=== PATIENT | female | born 1935 | race Caucasian/White ===

== ENCOUNTER 2017-04-25 15:26 | Inpatient (IN) | payer OTHER, BC ==
[~2017-04-25] VITALS: Ht 147.3 cm; Wt 61.8 kg
[~2017-04-25 15:26] MED LIST: ADVIL COLD PO; Ascorbic Acid,Ester- PO; CENTRUM SILV1 TABLET PO; HYDROCHLOROTH12.5 M3 PO; LORTAB 10 MG-3473 ML PO; MAGIC MOUTHWASH PO; MEGARED OMEGA-1 EAC2 PO; OXYCODONE HCL5 MG PO; Oyst-Cal D, Oscal W/ PO; PREDNISONE5 MG PO; Prilosec PO; SINGULAIR10 MG PO; SYNTHROID50 MCG PO; Singulair PO; Symbicort 160-4.5 mc IH; TOPROL XL25 MG PO; TYLENOL REGULA325 MG PO; VITAMIN B-12500 MC4 PO; VITAMIN D1000 INTUN PO; VITAMIN E400 UNIT PO; Xanax PO; Zoloft PO; [UNRECOGNIZED DRUG - OTHER] PO
[2017-04-25 18:43] LABS: HEMATOCRIT 29.4 % (36.0-46.0); MCH 30.4 PG (29.0-34.0); MCHC 31.3 G/DL (30.0-36.0); MEAN PLAT.VOLUME 9.7 uM^3 (9.5-12.4); PLATELET COUNT 239 K/uL (156-360); RBC DIS.WIDTH-CV 14.6 % (11.8-14.6); RBC DIS.WIDTH-SD 51.6 % (39-53); RED BLOOD COUNT 3.03 M/uL (3.80-5.20); WHITE BLOOD COUNT 7.4 K/uL (4.1-10.2)
[2017-04-25 18:52] LABS: CHLORIDE 103 mEq/L (99-109); SODIUM 139 mEq/L (136-147)
[2017-04-25 18:55] LABS: GLUCOSE 94 mg/dL (70-99)
[2017-04-25 18:56] LABS: ANION GAP 8 MEQ/L (2-14)
[2017-04-25 18:57] LABS: TOTAL BILIRUBIN 0.5 mg/dL (0.0-1.0)
[2017-04-25 18:58] LABS: ALKALINE PHOSPHATASE 73 IU/L (3-129); GFR ESTIMATE (CALCULATED) 51 mL/min/
[2017-04-25 18:59] LABS: UREA NITROGEN (BUN) 11 mg/dL (9-23)
[2017-04-25] MEDS ORDERED: LOPRESSOR25 MG PO (19:28)
[2017-04-25] MEDS ORDERED: LEVOTHYROXINE50 MCG PO (19:29)
[2017-04-25] MEDS ORDERED: ALPRAZOLAM0.5 MG PO (19:30)
[2017-04-25] MEDS ORDERED: SERTRALINE HCL100 MG PO (19:31)
[2017-04-25] MEDS ORDERED: FOLIC ACID1 MG PO (19:34)
[2017-04-25] MEDS ORDERED: VENTOLIN HFA18 GM IH (19:34)
[2017-04-25] MEDS ORDERED: MONTELUKAST SOD10 MG PO (19:35)
[2017-04-25] MEDS ORDERED: CENTRUM SILVER1 EAC4 PO (19:40)
[2017-04-25] MEDS ORDERED: IRON325 M1 PO (19:42)
[2017-04-25] MEDS ORDERED: CALCIUM600 M1 PO (19:42)
[2017-04-25] MEDS ORDERED: VITAMIN D-3 401 EACH PO (19:44)
[2017-04-25] MEDS ORDERED: LO-DOSE ASPIRIN81 M2 PO (19:45)
[2017-04-25 23:53] VITALS: BP 122/60
[2017-04-25 23:56] LABS: ADD MIUA? YES; BILIRUBIN NEGATIVE; BLOOD SMALL; COLOR YELLOW ((YELLOW)); GLUCOSE (STRIP) NEGATIVE; KETONES NEGATIVE; LEUKOCYTES NEGATIVE; NITRITE NEGATIVE; PROTEIN (STRIP) NEGATIVE; UROBILINOGEN 0.2 MG/DL (0.2-1.0)
[2017-04-26 00:06] LABS: BACTERIA 2+ /HPF; EPITHELIAL CELLS RARE /HPF; MUCUS 1+ /LPF; RED BLOOD CELLS 0-5 /HPF (0-5); UCUL ADDED? YES; WHITE BLOOD CELLS 0-5 /HPF (0-5)
[2017-04-26 04:07] VITALS: BP 144/66
[2017-04-26 08:04] VITALS: BP 144/66
[2017-04-26 08:05] LABS: INTERNAL CONTROL VALID? YES
[2017-04-26 08:43] LABS: MCH 30.7 PG (29.0-34.0); MCHC 31.4 G/DL (30.0-36.0); MEAN PLAT.VOLUME 9.7 uM^3 (9.5-12.4); PLATELET COUNT 235 K/uL (156-360); RBC DIS.WIDTH-CV 14.6 % (11.8-14.6); RBC DIS.WIDTH-SD 52.2 % (39-53); RED BLOOD COUNT 2.96 M/uL (3.80-5.20); WHITE BLOOD COUNT 5.4 K/uL (4.1-10.2)
[2017-04-26 09:22] LABS: ANION GAP 10 MEQ/L (2-14); CHLORIDE 107 MEQ/L (99-109); GFR ESTIMATE (CALCULATED) > 59 mL/min/; POTASSIUM 4.3 MEQ/L (3.7-5.4); SAMPLE HEMOLYSIS CHECK 0; SAMPLE ICTERIC CHECK 0; SAMPLE LIPEMIA CHECK 0; SODIUM 143 MEQ/L (136-147); UREA NITROGEN (BUN) 12 mg/dL (9-23)
[2017-04-26 09:24] LABS: GLUCOSE 232 mg/dL (70-99)
[2017-04-26 09:52] LABS: EOSINOPHIL (%) 0.2 % (0-5); IMMATURE GRANULOCYTE (%) 4.4 % (0.0-0.7); IMMATURE GRANULOCYTE COUNT 0.2 K/uL; INSTRUMENT ABS NEUTROPHIL CT 4.7 K/uL; LYMPHOCYTE COUNT 0.4 K/uL (1.0-2.8); MONOCYTE (%) 0.9 % (3-12); MONOCYTE COUNT 0.1 K/uL (0-0.8); NEUTROPHIL (%) 86.2 % (45-76); NEUTROPHIL COUNT 4.7 K/uL (1.8-6.4)
[2017-04-26 11:30] VITALS: BP 127/57
[2017-04-26 16:01] VITALS: BP 132/60
[2017-04-26 18:29] LABS: C DIFF TOXIN NEGATIVE (NEGATIVE)
[2017-04-26 18:30] LABS: PROBE CHECK PASS; SPECIMEN PROCESSING CONTROL PASS
[2017-04-26 19:47] VITALS: BP 122/57
[2017-04-26 21:25] VITALS: BP 128/72
[2017-04-27 00:02] VITALS: BP 130/64
[2017-04-27 03:30] VITALS: BP 121/76
[2017-04-27 06:45] LABS: HEMATOCRIT 27.2 % (36.0-46.0); MCH 31.3 PG (29.0-34.0); MCHC 31.6 G/DL (30.0-36.0); MCV 98.9 FL (83-99); MEAN PLAT.VOLUME 9.8 uM^3 (9.5-12.4); PLATELET COUNT 240 K/uL (156-360); RBC DIS.WIDTH-CV 14.5 % (11.8-14.6); RBC DIS.WIDTH-SD 52.1 % (39-53); RED BLOOD COUNT 2.75 M/uL (3.80-5.20)
[2017-04-27 07:12] LABS: ANION GAP 9 MEQ/L (2-14); CHLORIDE 109 MEQ/L (99-109); GFR ESTIMATE (CALCULATED) 57 mL/min/; GLUCOSE 189 mg/dL (70-99); POTASSIUM 5.4 MEQ/L (3.7-5.4); SAMPLE HEMOLYSIS CHECK 0; SAMPLE ICTERIC CHECK 0; SAMPLE LIPEMIA CHECK 0; SODIUM 145 MEQ/L (136-147); UREA NITROGEN (BUN) 16 mg/dL (9-23)
[2017-04-27 08:02] VITALS: BP 141/63
[2017-04-27 12:59] VITALS: BP 181/74
[2017-04-27 16:34] VITALS: BP 172/72
[2017-04-27 19:35] VITALS: BP 181/76
[2017-04-28] VITALS (8 sets, daily range): BP systolic 126–184; BP diastolic 65–97
[2017-04-28 05:47] LABS: HEMATOCRIT 28.1 % (36.0-46.0); MCH 30.3 PG (29.0-34.0); MCV 97.9 FL (83-99); MEAN PLAT.VOLUME 9.5 uM^3 (9.5-12.4); PLATELET COUNT 273 K/uL (156-360); RBC DIS.WIDTH-CV 14.6 % (11.8-14.6); RED BLOOD COUNT 2.87 M/uL (3.80-5.20); WHITE BLOOD COUNT 13.5 K/uL (4.1-10.2)
[2017-04-28 06:12] LABS: ANION GAP 8 MEQ/L (2-14); CHLORIDE 109 MEQ/L (99-109); GFR ESTIMATE (CALCULATED) 51 mL/min/; GLUCOSE 167 mg/dL (70-99); POTASSIUM 4.9 MEQ/L (3.7-5.4); SAMPLE HEMOLYSIS CHECK 0; SAMPLE ICTERIC CHECK 0; SAMPLE LIPEMIA CHECK 0; SODIUM 146 MEQ/L (136-147); UREA NITROGEN (BUN) 23 mg/dL (9-23)
[2017-04-29] VITALS (7 sets, daily range): BP systolic 150–181; BP diastolic 69–80
[2017-04-29 06:30] LABS: HEMATOCRIT 29.9 % (36.0-46.0); MCH 30.6 PG (29.0-34.0); MCHC 31.1 G/DL (30.0-36.0); MCV 98.4 FL (83-99); MEAN PLAT.VOLUME 9.5 uM^3 (9.5-12.4); NRBC (%) 0.2 /100 WBC (0-0); PLATELET COUNT 291 K/uL (156-360); RBC DIS.WIDTH-CV 14.7 % (11.8-14.6); RBC DIS.WIDTH-SD 53.3 % (39-53); RED BLOOD COUNT 3.04 M/uL (3.80-5.20); WHITE BLOOD COUNT 12.2 K/uL (4.1-10.2)
[2017-04-29 06:50] LABS: ANION GAP 9 MEQ/L (2-14); CHLORIDE 105 MEQ/L (99-109); GFR ESTIMATE (CALCULATED) 38 mL/min/; GLUCOSE 159 mg/dL (70-99); POTASSIUM 4.5 MEQ/L (3.7-5.4); SAMPLE HEMOLYSIS CHECK 0; SAMPLE ICTERIC CHECK 0; SAMPLE LIPEMIA CHECK 0; SODIUM 147 MEQ/L (136-147); UREA NITROGEN (BUN) 30 mg/dL (9-23)
[2017-04-30 05:40] LABS: HEMATOCRIT 28.1 % (36.0-46.0); MCH 31.1 PG (29.0-34.0); MCHC 31.3 G/DL (30.0-36.0); MCV 99.3 FL (83-99); MEAN PLAT.VOLUME 9.5 uM^3 (9.5-12.4); NRBC (%) 0.2 /100 WBC (0-0); PLATELET COUNT 261 K/uL (156-360); RBC DIS.WIDTH-CV 14.7 % (11.8-14.6); RBC DIS.WIDTH-SD 53.6 % (39-53); RED BLOOD COUNT 2.83 M/uL (3.80-5.20)
[2017-04-30 06:19] LABS: ANION GAP 7 MEQ/L (2-14); CHLORIDE 107 MEQ/L (99-109); GFR ESTIMATE (CALCULATED) 42 mL/min/; GLUCOSE 171 mg/dL (70-99); POTASSIUM 4.7 MEQ/L (3.7-5.4); SAMPLE HEMOLYSIS CHECK 0; SAMPLE ICTERIC CHECK 0; SAMPLE LIPEMIA CHECK 0; SODIUM 145 MEQ/L (136-147); UREA NITROGEN (BUN) 27 mg/dL (9-23)
[2017-04-30 06:48] VITALS: BP 127/53
[2017-04-30 07:23] LABS: ABS NEUTROPHIL COUNT 8.7; BAND NEUTROPHILS 5.3 % (0-8.0); EOSINOPHIL ABS CT 0; INSTRUMENT ABS NEUTROPHIL CT 7.8 K/uL; LYMPHOCYTES 6.1 % (15.0-45.0); METAMYELOCYTES 0.9 %; MYELOCYTES 1.7 %; PLAT.SUFFICIENCY ADEQUATE; SEG.NEUTROPHILS 81.6 % (46.0-76.0)
[2017-04-30] MEDS ORDERED: Symbicort 160-4.5 mc IH (12:12)
[2017-04-30] MEDS ORDERED: LEVOFLOXACIN750 MG PO (12:12)
[2017-04-30] MEDS ORDERED: PREDNISONE20 MG PO (12:12)
[2017-04-30] MEDS ORDERED: VENTOLIN HFA18 GM IH (12:12)
[2017-04-30] MEDS ORDERED: AMLODIPINE BESY10 MG PO (12:12)
[2017-04-30] MEDS ORDERED: MUCINEX600 MG PO (12:12)
== END 2017-04-30 15:19 | disposition home health service (06) | DRG 193 ==
LOC: EME 15:26 → EDOF 20:53 → 5EAST 20:53 → ENRESERV 20:54 → 5EAST 22:11 → ENPENDDIS 04-30 → 5EAST 04-30 15:19
PROVIDERS: Hospitalist; Internal Medicine; Nurse Practitioner Family
DX: J18.9 Pneumonia, unspecified organism (principal); J44.0 Chronic obstructive pulmonary disease with (acute) lower respiratory infection; J44.1 Chronic obstructive pulmonary disease with (acute) exacerbation; J96.21 Acute and chronic respiratory failure with hypoxia; N17.9 Acute kidney failure, unspecified; D84.9 Immunodeficiency, unspecified; C78.00 Secondary malignant neoplasm of unspecified lung; C79.51 Secondary malignant neoplasm of bone; D64.9 Anemia, unspecified; I10 Essential (primary) hypertension; F39 Unspecified mood [affective] disorder; E03.9 Hypothyroidism, unspecified; F32.9 Major depressive disorder, single episode, unspecified; F41.9 Anxiety disorder, unspecified; T45.1X5A Adverse effect of antineoplastic and immunosuppressive drugs, initial encounter; Z99.81 Dependence on supplemental oxygen; Z87.891 Personal history of nicotine dependence; Z90.49 Acquired absence of other specified parts of digestive tract; Z85.038 Personal history of other malignant neoplasm of large intestine; Z92.3 Personal history of irradiation; Z85.118 Personal history of other malignant neoplasm of bronchus and lung; Z90.2 Acquired absence of lung [part of]
CPT/HCPCS: 36415; 71010; 71250; 80048; 80053; 81003; 82306; 83605; 85025; 85027; 87040; 87070; 87077; 87086; 87086 GA; 87186; 87205; 87449; 87493; 94640; 94640 76; 94799; 99202; 99281; 99285; J0295; J0456; J1650; J1940; J2920; J2930; J3370; J7030; J7050

== ENCOUNTER 2017-09-30 18:54 | Inpatient (IN) | payer OTHER, BC ==
[~2017-09-30] VITALS: Ht 147.3 cm; Wt 63.7 kg
[~2017-09-30 18:54] MED LIST changes: +ALPRAZOLAM0.5 MG PO; +AMLODIPINE BESY10 MG PO; +CALCIUM600 M1 PO; +CENTRUM SILVER1 EAC4 PO; +FOLIC ACID1 MG PO; +IRON325 M1 PO; +LEVOFLOXACIN750 MG PO; +LEVOTHYROXINE50 MCG PO; +LO-DOSE ASPIRIN81 M2 PO; +LOPRESSOR25 MG PO; +MONTELUKAST SOD10 MG PO; +MUCINEX600 MG PO; +PREDNISONE20 MG PO; +SERTRALINE HCL100 MG PO; +VENTOLIN HFA18 GM IH; +VITAMIN D-3 401 EACH PO
[2017-09-30 19:29] LABS: HEMATOCRIT 34.5 % (36.0-46.0); HEMOGLOBIN 11.2 G/DL (11.9-15.5); MCH 31.2 PG (29.0-34.0); MCHC 32.5 G/DL (30.0-36.0); MCV 96.1 FL (83-99); PLATELET COUNT 302 K/uL (156-360); RBC DIS.WIDTH-CV 15.1 % (11.8-14.6); RED BLOOD COUNT 3.59 M/uL (3.80-5.20); WHITE BLOOD COUNT 11.8 K/uL (4.1-10.2)
[2017-09-30 19:41] LABS: CHLORIDE 104 mEq/L (99-109); POTASSIUM 4.7 mEq/L (3.7-5.4); SODIUM 140 mEq/L (136-147)
[2017-09-30 19:42] LABS: GLUCOSE 165 mg/dL (70-99)
[2017-09-30 19:46] LABS: CREATININE 1.4 mg/dL (0.6-1.3); GFR ESTIMATE (CALCULATED) 38 mL/min/
[2017-09-30 19:47] LABS: UREA NITROGEN (BUN) 28 mg/dL (9-23)
[2017-09-30 19:50] LABS: TROP-I INTERPRETATION NEGATIVE; TROPONIN-I < 0.01 ng/mL (0.0-0.30)
[2017-09-30 21:08] LABS: INTER. NORMALIZED RATIO 1.1
[2017-09-30 21:11] LABS: PTT 25.2 SEC (25-37)
[2017-09-30 21:15] LABS: MAGNESIUM 2.3 mg/dL (1.3-2.7)
[2017-09-30 21:17] LABS: TOTAL PROTEIN 6.9 g/dL (6.4-8.3)
[2017-09-30 21:18] LABS: TOTAL BILIRUBIN 0.3 mg/dL (0.0-1.0)
[2017-09-30 21:20] LABS: ALKALINE PHOSPHATASE 67 IU/L (3-129)
[2017-09-30 21:22] LABS: AST (GOT) 11 IU/L (2-34); DIRECT BILIRUBIN 0.1 mg/dL (0.0-0.3)
[2017-09-30 21:23] LABS: ALT (GPT) 11 IU/L (3-49)
[2017-09-30] MEDS ORDERED: MUCINEX600 MG PO (21:36)
[2017-09-30] MEDS ORDERED: SYMBICORT60 INHALAT IH (21:38)
[2017-09-30] MEDS ORDERED: B-121000 MC2 PO (21:38)
[2017-09-30] MEDS ORDERED: REFRESH TEARS15 ML BOTH EYES (21:40)
[2017-09-30] MEDS ORDERED: ADVIL ALLERGY-1 EACH PO (21:43)
[2017-09-30] MEDS ORDERED: PREDNISONE10 MG PO ×3 (21:46→21:48)
[2017-10-01 01:41] VITALS: BP 144/65
[2017-10-01 03:40] VITALS: BP 123/56
[2017-10-01 05:23] LABS: HEMATOCRIT 34.2 % (36.0-46.0); HEMOGLOBIN 10.6 G/DL (11.9-15.5); MCH 30.2 PG (29.0-34.0); MCV 97.4 FL (83-99); PLATELET COUNT 268 K/uL (156-360); RBC DIS.WIDTH-CV 15.3 % (11.8-14.6); RBC DIS.WIDTH-SD 54.4 % (39-53); RED BLOOD COUNT 3.51 M/uL (3.80-5.20); WHITE BLOOD COUNT 11.8 K/uL (4.1-10.2)
[2017-10-01 05:38] LABS: TROP-I INTERPRETATION NEGATIVE; TROPONIN-I 0.01 ng/mL (0.0-0.30)
[2017-10-01 05:47] LABS: ANISOCYTOSIS 1+; BAND NEUTROPHILS 1.8 % (0-8.0); EOSINOPHIL ABS CT 0; LYMPHOCYTES 3.5 % (15.0-45.0); MACROCYTES 1+; METAMYELOCYTES 1.8 %; MONOCYTES 1.8 % (0-9.0); PLAT.SUFFICIENCY ADEQUATE; SEG.NEUTROPHILS 91.1 % (46.0-76.0); TOX.VACUOLIZATION 1+
[2017-10-01 06:02] LABS: CHLORIDE 107 MEQ/L (99-109); CREATININE 1.3 MG/DL (0.6-1.3); GFR ESTIMATE (CALCULATED) 42 mL/min/; GLUCOSE 198 mg/dL (70-99); POTASSIUM 4.3 MEQ/L (3.7-5.4); SODIUM 144 MEQ/L (136-147); UREA NITROGEN (BUN) 25 mg/dL (9-23)
[2017-10-01 07:56] VITALS: BP 139/65
[2017-10-01 12:15] VITALS: BP 195/84
[2017-10-01 12:38] LABS: TROP-I INTERPRETATION NEGATIVE; TROPONIN-I < 0.01 ng/mL (0.0-0.30)
[2017-10-01 16:13] VITALS: BP 140/72
[2017-10-01 19:34] VITALS: BP 175/77
[2017-10-01 21:33] LABS: C DIFF TOXIN NEGATIVE (NEGATIVE)
[2017-10-02 00:04] VITALS: BP 169/77
[2017-10-02 04:02] VITALS: BP 150/68
[2017-10-02 07:20] VITALS: BP 152/68
[2017-10-02 11:23] VITALS: BP 111/57
[2017-10-02 15:05] VITALS: BP 144/63
[2017-10-02 20:14] VITALS: BP 119/57
[2017-10-03 00:12] VITALS: BP 115/86
[2017-10-03 03:37] VITALS: BP 118/58
[2017-10-03 07:45] VITALS: BP 127/55
[2017-10-03] MEDS ORDERED: ELIQUIS5 MG PO (11:36)
[2017-10-03] MEDS ORDERED: LOPRESSOR25 MG PO (11:36)
[2017-10-03 11:38] VITALS: BP 118/55
== END 2017-10-03 13:18 | disposition home health service (06) | DRG 194 ==
LOC: EME 18:54 → 5SOUTH 23:13 → EDOF 23:13 → ENRESERV 23:21 → 5SOUTH 10-01 01:08
PROVIDERS: Emergency Medicine; Hospitalist; Internal Medicine
DX: J18.9 Pneumonia, unspecified organism (principal); J44.0 Chronic obstructive pulmonary disease with (acute) lower respiratory infection; J44.1 Chronic obstructive pulmonary disease with (acute) exacerbation; N17.9 Acute kidney failure, unspecified; J96.11 Chronic respiratory failure with hypoxia; Z99.81 Dependence on supplemental oxygen; I48.0 Paroxysmal atrial fibrillation; I10 Essential (primary) hypertension; E03.9 Hypothyroidism, unspecified; D64.9 Anemia, unspecified; F32.9 Major depressive disorder, single episode, unspecified; F41.9 Anxiety disorder, unspecified; Z85.038 Personal history of other malignant neoplasm of large intestine; Z85.118 Personal history of other malignant neoplasm of bronchus and lung; Z87.891 Personal history of nicotine dependence; Z90.49 Acquired absence of other specified parts of digestive tract; Z92.21 Personal history of antineoplastic chemotherapy; Z92.3 Personal history of irradiation; Z79.82 Long term (current) use of aspirin
CPT/HCPCS: 71046; 80048; 80076; 83605; 83735; 83880; 84484; 85025; 85027; 85610; 85730; 87040; 87070; 87205; 87449; 87493; 93005; 93306; 94640; 94640 76; 94799; 99202; 99281; 99285; J0295; J0456; J1200; J1650; J2405; J2543; J2930; J3370; J7030; J7050